=== PATIENT | male | born 1940 | race Caucasian/White ===

== ENCOUNTER → 2017-08-24 | Outpatient (CLI) | payer MEDICARE, MEDICAID ==
--- NOTE | 2017-08-24 12:32 | RADIOLOGY REPORT (SQ) ---
EXAM DESCRIPTION: KNEE RIGHT 4 VIEWS COMPLETED DATE/TIME: 08/24/2017 12:11 pm REASON FOR STUDY: ANKYLOSIS, RIGHT KNEE M24.661 ANKYLOSIS, RIGHT KNEE COMPARISON: None. NUMBER OF VIEWS: Four views. TECHNIQUE: AP, lateral, and both oblique radiographic images acquired of the right knee. LIMITATIONS: None. FINDINGS: MINERALIZATION: Osteopenic BONES: No acute fracture or dislocation. No worrisome bone lesions. JOINT: Trace suprapatellar knee joint effusion. Mild to moderate medial compartment joint space narr owing. Moderate patellofemoral joint space narrowing SOFT TISSUES: Spotty atherosclerotic arterial vascular calcification. No radiopaque foreign body or soft tissue gas OTHER: No other significant finding. IMPRESSION: Trace knee joint effusion Patellofemoral and medial compartment osteoarthritis No acute fracture TECHNICAL DOCUMENTATION: JOB ID: [id number] [employer]- All Rights Reserved
== END ==
LOC: OD 11:46
PROVIDERS: ATTEND Internal Medicine
DX: M24.661 Ankylosis, right knee (principal); M17.11 Unilateral primary osteoarthritis, right knee

== ENCOUNTER 2018-03-24 16:21 | Inpatient (IN) | payer MEDICARE, MEDICAID ==
[2018-03-24] MEDS ORDERED: CEFAZOLIN 1 GM/D5W RTU 1 GM/50 ML RTUPB IV ONE ×2 (16:40→20:52)
[2018-03-24] MEDS ORDERED: DIPH/PERTUSS(ACELL)/TETANUS VAC/PF 0.5 ML SYR (>=10YO) IM ONE ×2 (16:40→20:55)
--- NOTE | 2018-03-24 16:42 | ER Document Report ---
ED Medical Screen (RME) - General Chief Complaint: Snake Bite Stated Complaint: SNAKE BITE/FINGER Time Seen by Provider: 03/24/18 16:39 Mode of Arrival: Ambulatory Information source: Patient, Relative TRAVEL OUTSIDE OF THE [place] IN LAST 30 DAYS: No - HPI Patient complains to provider of: snake bite Onset: Just prior to arrival - pt with snake bite ([place]) to R hand. Tet- OOD - Related Data Allergies/Adverse Reactions: atorvastatin calcium [From Lipitor] Allergy (Verified 03/24/18 16:23) codeine [Codeine] Allergy (Verified 03/24/18 16:23) Past Medical History - Past Medical History Cardiac Medical History: Reports: Hx Hypercholesterolemia, Hx Hypertension Past Surgical History: Reports: Hx Appendectomy, Hx Cholecystectomy, Hx Herniorrhaphy, Hx Tonsillectomy Physical Exam - Vital signs Vitals: Temp Pulse Resp BP Pulse Ox 98.3 F 72 16 104/59 L 96 03/24/18 16:28 03/24/18 16:28 03/24/18 16:28 03/24/18 16:28 03/24/18 16:28 Course - Vital Signs Vital signs: Temp Pulse Resp BP Pulse Ox 98.3 F 72 16 104/59 L 96 03/24/18 16:28 03/24/18 16:28 03/24/18 16:28 03/24/18 16:28 03/24/18 16:28 Doctor's Discharge - Discharge Referrals: JOVANI VITALE MD [Primary Care Provider] - Follow up as needed
[2018-03-24] MEDS ORDERED: ANTIVENIN,CROTALIDAE FAB(OVIN) INJ 1 VIAL IV ONE (17:02)
[2018-03-24 17:53] LABS: ABSOLUTE BASOPHILS # (AUTO) 0.1 10^3/uL (0.0-0.2); ABSOLUTE EOSINOPHILS # (AUTO) 0.2 10^3/uL (0.0-0.6); ABSOLUTE LYMPHOCYTES (AUTO) 1.3 10^3/uL (0.5-4.7); ABSOLUTE MONOCYTES (AUTO) 0.6 10^3/uL (0.1-1.4); ABSOLUTE NEUT (AUTO) 4.3 10^3/uL (1.7-8.2); BASOPHILS % (AUTO) 1.3 % (0-2); EOSINOPHILS % (AUTO) 3.6 % (0-6); HEMATOCRIT 37.6 % (37.9-51.0); HEMOGLOBIN 12.5 g/dL (13.5-17.0); MEAN CORPUSCULAR HGB CONC 33.2 g/dL (32.0-36.0); MEAN CORPUSCULAR VOLUME 87 fl (80-97); MONOCYTES % (AUTO) 8.7 % (3-13); PLATELET COUNT 133 10^3/uL (150-450); RED BLOOD COUNT 4.32 10^6/uL (4.35-5.55); RED CELL DISTRIBUTION WIDTH 15.8 % (11.5-14.0); SEGMENTED NEUTROPHILS % (AUTO) 66.4 % (42-78); TOTAL CELLS COUNTED % (AUTO) 100 %; WHITE BLOOD COUNT 6.4 10^3/uL (4.0-10.5)
[2018-03-24 18:08] LABS: ALANINE AMINOTRANSFERASE 32 U/L (21-72); ALBUMIN 4.1 g/dL (3.5-5.0); ALKALINE PHOSPHATASE 68 U/L (38-126); ANION GAP 12 (5-19); ASPARTATE AMINO TRANSFERASE 35 U/L (17-59); BILIRUBIN,DIRECT 0.3 mg/dL (0.0-0.4); BILIRUBIN,TOTAL 0.6 mg/dL (0.2-1.3); BLOOD UREA NITROGEN 24 mg/dL (7-20); CALCIUM 9.8 mg/dL (8.4-10.2); CARBON DIOXIDE 23 mmol/L (22-30); CHLORIDE 107 mmol/L (98-107); GLUCOSE 85 mg/dL (75-110); POTASSIUM 4.7 mmol/L (3.6-5.0); SODIUM 142.2 mmol/L (137-145); TOTAL PROTEIN 7.1 g/dL (6.3-8.2)
[2018-03-24 18:20] LABS: INTERNATIONAL RATION (INR) 0.96; PROTHROMBIN TIME 13.3 SEC (11.4-15.4)
[2018-03-24 18:21] LABS: PARTIAL THROMBOPLASTIN TIME 30.8 SEC (23.5-35.8)
--- NOTE | 2018-03-24 18:59 | PDOC CONSULTATION ---
Consultation Consult Date: 03/24/18 Consult reason:: snake bite to right hand History of Present Illness Admission Date/PCP: JOVANI VITALE Patient complains of: pains right hand History of Present Illness: CATHIE JEFFREY is a 77 year old male just post AICD placement was bitten on his right ring finger by a copperhead snake this afternoon. Patient c/o pains and swelling right hand. Patient is being given antivenom right now. Past Medical History Cardiac Medical History: Reports: Myocardial Infarction, Hyperlipidema, Hypertension Past Surgical History Past Surgical History: Reports: Appendectomy, Cardiac Catheterization - Stent; Defibrilator, Cholecystectomy, Herniorrhaphy, Tonsillectomy, Other - AICD placement Social History Smoking Status: Former Smoker Family History Family History: Reviewed & Not Pertinent Parental Family History Reviewed: Yes Children Family History Reviewed: No Sibling(s) Family History Reviewed.: No Medication/Allergy Home Medications: Hydrocodone/Acetaminophen [Vicodin 5-300 mg Tablet] 0.5 - 1 tab PO ASDIR PRN # 10 tab 01/04/15 Allergies/Adverse Reactions: atorvastatin calcium [From Lipitor] Allergy (Verified 03/24/18 16:23) codeine [Codeine] Allergy (Verified 03/24/18 16:42) Latex, Natural Rubber Adverse Reaction (Verified 03/24/18 16:43) Review of Systems Constitutional: PRESENT: other - no fever/chills Eyes: PRESENT: other - no visual/hearing changes Cardiovascular: PRESENT: other - no chest pains/cough Gastrointestinal: PRESENT: other - no pains Genitourinary: PRESENT: other - no dysuria Musculoskeletal: PRESENT: joint swelling - right interphalangeal joint 4th finger and surrounding areas of the right hand Neurological: PRESENT: other - no weakness Hematologic/Lymphatic: PRESENT: other - no easy bruising Physical Exam Vital Signs: Temp Pulse Resp BP Pulse Ox 98.3 F 72 16 104/59 L 100 03/24/18 16:28 03/24/18 16:28 03/24/18 18:05 03/24/18 16:28 03/24/18 18:05 Intake & Output 03/23/18 03/24/18 03/25/18 06:59 06:59 06:59 Weight 91.5 kg General appearance: PRESENT: mild distress Head exam: PRESENT: atraumatic Eye exam: PRESENT: conjunctiva pink Mouth exam: PRESENT: moist Neck exam: PRESENT: full ROM Respiratory exam: PRESENT: clear to auscultation kit Cardiovascular exam: PRESENT: RRR Pulses: PRESENT: normal radial pulses Vascular exam: PRESENT: normal capillary refill GI/Abdominal exam: PRESENT: soft Rectal exam: PRESENT: deferred Extremities exam: PRESENT: joint swelling - right 4th finger PIP and MCP joints with dried blood between 3rd and 4th fingers Able to slowly straighten right fingers Right hand is swollen and rest of the fingers right hand Intact sensation Neurological exam: PRESENT: alert, oriented to person, oriented to place, oriented to time, oriented to situation Psychiatric exam: PRESENT: appropriate affect Skin exam: PRESENT: normal color, warm Results Laboratory Results: 03/24/18 17:31 03/24/18 17:31 03/24/18 03/24/18 03/24/18 17:31 17:31 17:39 WBC 6.4 RBC 4.32 L Hgb 12.5 L Hct 37.6 L MCV 87 MCH 29.0 MCHC 33.2 RDW 15.8 H Plt Count 133 L Seg Neutrophils % 66.4 Lymphocytes % 20.0 Monocytes % 8.7 Eosinophils % 3.6 Basophils % 1.3 Absolute Neutrophils 4.3 Absolute Lymphocytes 1.3 Absolute Monocytes 0.6 Absolute Eosinophils 0.2 Absolute Basophils 0.1 Sodium 142.2 Potassium 4.7 Chloride 107 Carbon Dioxide 23 Anion Gap 12 BUN 24 H Creatinine 1.28 H Est GFR ( Amer) > 60 Est GFR (Non-Af Amer) 54 L Glucose 85 Lactic Acid 1.0 Calcium 9.8 Total Bilirubin 0.6 AST 35 ALT 32 Alkaline Phosphatase 68 Total Protein 7.1 Albumin 4.1 Assessment & Plan - Diagnosis (1) snake bite to right hand Is this a current diagnosis for this admission?: Yes - Time Time Spent: 30 to 50 Minutes - Plan Summary Plan Summary: The right hand is first seen but appears to be getting worse according to his nurse. The 4th finger is really swollen and this may lead to a compartment syndrome Ask Ortho to evaluate if not suggest transferring to a tertiary facility where they can monitor the venom reaction and swelling of right hand by a hand surgeon.
--- NOTE | 2018-03-24 19:15 | ER Document Report ---
ED Snake Bite - General Mode of Arrival: Ambulatory TRAVEL OUTSIDE OF THE [place] IN LAST 30 DAYS: No - HPI Onset: This afternoon - APPROX. 1515 HRS. Where: Home, Outdoors Location of injury: RUE - R. RING FINGER Type of snake: COPPERHEAD Animal captured or known: Yes Animal control notified: No Quality of pain: Throbbing Severity: Bitten, Envenomation - MODERATE Context of attack: Entered snake's domain Lost Consciousness: No Remembers: Injury, Coming to hospital Associated Symptoms: denies: Fever/chills/sweaty, Hurts to breathe, Nausea/ vomiting, Sensory/motor loss (arm), Tremors, Seizure, Lightheaded, Headache <MYRON HOLDEN - Last Filed: 03/24/18 19:18> <CHARLES COE - Last Filed: 03/25/18 02:09> - General Chief Complaint: Snake Bite Stated Complaint: SNAKE BITE/FINGER Time Seen by Provider: 03/24/18 16:39 - Related Data Allergies/Adverse Reactions: atorvastatin calcium [From Lipitor] Allergy (Verified 03/24/18 16:23) codeine [Codeine] Allergy (Verified 03/24/18 16:42) Latex, Natural Rubber Adverse Reaction (Verified 03/24/18 16:43) Past Medical History - General Information source: Patient, Relative - Social History Smoking Status: Former Smoker Frequency of alcohol use: Rare Drug Abuse: None Lives with: Spouse/Significant other Family History: Reviewed & Not Pertinent Patient has suicidal ideation: No Patient has homicidal ideation: No - Past Medical History Cardiac Medical History: Reports: Hx Heart Attack, Hx Hypercholesterolemia, Hx Hypertension Pulmonary Medical History: Reports: None EENT Medical History: Reports: None Neurological Medical History: Reports: None Endocrine Medical History: Reports: None Renal/ Medical History: Reports: None. Denies: Hx Peritoneal Dialysis Malignancy Medical History: Reports None GI Medical History: Reports: None Musculoskeletal Medical History: Reports None Psychiatric Medical History: Reports: None Past Surgical History: Reports: Hx Appendectomy, Hx Cardiac Catheterization - Stent; Defibrilator, Hx Cholecystectomy, Hx Herniorrhaphy, Hx Pacemaker, Hx Tonsillectomy, Other - AICD placement <MYRON HOLDEN - Last Filed: 03/24/18 19:18> Review of Systems - Review of Systems Constitutional: No symptoms reported EENT: No symptoms reported Cardiovascular: No symptoms reported Respiratory: No symptoms reported Gastrointestinal: No symptoms reported Genitourinary: No symptoms reported Musculoskeletal: See HPI Skin: See HPI Neurological/Psychological: No symptoms reported <NAVINMYRON - Last Filed: 03/24/18 19:18> Physical Exam - Vital signs Interpretation: Hypotensive. No: Tachycardic, Tachypneic, Febrile - General General appearance: Appears well, Alert In distress: None - HEENT Head: Normocephalic Eyes: Normal Conjunctiva: Normal Ears: Normal Nasal: Normal Mouth/Lips: Normal Mucous membranes: Normal - Respiratory Respiratory status: No respiratory distress Breath sounds: Normal - Cardiovascular Rhythm: Regular Heart sounds: Normal auscultation Murmur: No - Abdominal Inspection: Normal Distension: No distension - Extremities General upper extremity: No: Normal inspection - R. HAND (SEE BELOW) General lower extremity: Normal inspection Hand: Other - Puncture wounds near PIP joint of right ring finger. Moderate edema of fingers #3 4 and 5, extending dorsally to the mid metacarpal area. Slight violaceous discoloration noted. Skin remains loose, no impending compartment syndrome at this time. - Neurological Neuro grossly intact: Yes Cognition: Normal Orientation: AAOx4 - Psychological Associated symptoms: Normal affect, Normal mood - Skin Skin Temperature: Warm Skin Moisture: Dry Skin Color: Normal Skin Turgor: Elastic Skin irregularity: other - SEE "HAND" ABOVE <NAVINMYRON - Last Filed: 03/24/18 19:18> - Vital signs Vitals: Temp Pulse Resp BP Pulse Ox 98.3 F 72 16 104/59 L 96 03/24/18 16:28 03/24/18 16:28 03/24/18 16:28 03/24/18 16:28 03/24/18 16:28 Course - Laboratory Result Diagrams: 03/24/18 17:31 03/24/18 17:31 - Consults DR. ZUNIGA Time consulted: 17:40 Consulted provider: will come to ER DR. MCKEON Time consulted: 18:40 <MYRON HOLDEN - Last Filed: 03/24/18 19:18> - Laboratory Result Diagrams: 03/24/18 17:31 03/24/18 17:31 <CHARLES COE - Last Filed: 03/25/18 02:09> - Vital Signs Vital signs: Temp Pulse Resp BP Pulse Ox 97.4 F 72 15 109/63 98 03/24/18 22:17 03/24/18 16:28 03/25/18 00:00 03/24/18 23:04 03/25/18 00:00 - Laboratory Laboratory results interpreted by me: 03/24/18 03/24/18 03/24/18 17:31 17:31 17:31 RBC 4.32 L Hgb 12.5 L Hct 37.6 L RDW 15.8 H Plt Count 133 L D-Dimer 1.31 H BUN 24 H Creatinine 1.28 H Est GFR (Non-Af Amer) 54 L Ur Leukocyte Esterase 03/24/18 18:54 RBC Hgb Hct RDW Plt Count D-Dimer BUN Creatinine Est GFR (Non-Af Amer) Ur Leukocyte Esterase TRACE H - Consults DR. MCKEON Reason for consultation: 03/24/18 19:19 AGREES TO SEE PATIENT IN CONSULTATION. (MYRON HOLDEN) Discharge <MYRON HOLDEN - Last Filed: 03/24/18 19:18> - Discharge Admitting Provider: Surgicalist Unit Admitted: Surgical Floor <CHARLES COE - Last Filed: 03/25/18 02:09> - Discharge Clinical Impression: snake bite to right hand Condition: Fair Disposition: ADMITTED INPATIENT Referrals: JOVANI VITALE MD [Primary Care Provider] - Follow up as needed
[2018-03-24 19:42] LABS: APPEARANCE,URINE CLEAR; BILIRUBIN,URINE NEGATIVE (NEGATIVE); COLOR,URINE YELLOW; GLUCOSE, URINE NEGATIVE (NEGATIVE); KETONES,URINE NEGATIVE (NEGATIVE); LEUKOCYTE ESTERASE,URINE TRACE (NEGATIVE); NITRITE,URINE NEGATIVE (NEGATIVE); PROTEIN,URINE NEGATIVE (NEGATIVE); URINE SPECIFIC GRAVITY 1.015; UROBILINOGEN,URINE NEGATIVE mg/dL (<2.0)
[2018-03-24 19:57] LABS: D-DIMER 1.31 ug/mL (0.00-0.50)
[2018-03-24] MEDS ORDERED: ATORVASTATIN CALCIUM 80 MG TABLET PO ONE (22:05)
[2018-03-24] MEDS ORDERED: ASPIRIN 81 MG TABLET, CHEWABLE PO ONE (22:05)
[2018-03-24] MEDS: NORMAL SALINE 1000 ML 1,000 ML IV PRN (22:13)
[2018-03-24] MEDS ORDERED: TICAGRELOR 90 MG TABLET PO SCH (22:15)
[2018-03-25] MEDS ORDERED: CEFTRIAXONE INJ 500 MG VIAL ONE (05:49)
[2018-03-25] MEDS ORDERED: CEFTRIAXONE 1 GM/D5W RTU 1 GM/50 ML RTUPB IV SCH (06:00)
--- NOTE | 2018-03-25 07:11 | PDOC CONSULTATION ---
History of Present Illness Admission Date/PCP: 03/25/18 02:12 JOVANI VITALE Patient complains of: Snakebite right hand History of Present Illness: CATHIE JEFFREY is a 77 year old male who was working in the garden when he felt a sharp stabbing pain along his right ring finger. Initially thought it was a wasp bite but after exploring he found a copperhead snake and small finger wounds along his middle finger. He was promptly brought to the emergency room where it was concluded patient sustained a venomous snake bite. Patient was started on antivenom which significant improved patient's pain, swelling. Patient denies chest pain or shortness of breath. Past Medical History Cardiac Medical History: Reports: Myocardial Infarction, Hyperlipidema, Hypertension Pulmonary Medical History: Reports: None EENT Medical History: Reports: None Neurological Medical History: Reports: None Endocrine Medical History: Reports: None Renal/ Medical History: Reports: None Malignancy Medical History: Reports: None GI Medical History: Reports: None Musculoskeltal Medical History: Reports: None Psychiatric Medical History: Reports: None Denies: Depression Past Surgical History Past Surgical History: Reports: Appendectomy, Cardiac Catheterization - Stent; Defibrilator, Cholecystectomy, Herniorrhaphy, Pacemaker, Tonsillectomy, Other - AICD placement Social History Lives with: Spouse/Significant other Smoking Status: Former Smoker Last Time Smoked: quit over 40 yrs ago Frequency of Alcohol Use: None Hx Recreational Drug Use: No Drugs: None Hx Prescription Drug Abuse: No - Advance Directive Resuscitation Status: Full Code Family History Family History: Reviewed & Not Pertinent Parental Family History Reviewed: No Children Family History Reviewed: No Sibling(s) Family History Reviewed.: No Medication/Allergy Home Medications: Hydrocodone/Acetaminophen [Vicodin 5-300 mg Tablet] 0.5 - 1 tab PO ASDIR PRN # 10 tab 01/04/15 Allergies/Adverse Reactions: codeine [Codeine] Allergy (Verified 03/24/18 16:42) Latex, Natural Rubber Adverse Reaction (Verified 03/24/18 16:43) Review of Systems Constitutional: ABSENT: chills, fever(s), headache(s), weight gain, weight loss Eyes: ABSENT: visual disturbances Ears: ABSENT: hearing changes Cardiovascular: ABSENT: chest pain, dyspnea on exertion, edema, orthropnea, palpitations Respiratory: ABSENT: cough, hemoptysis Gastrointestinal: ABSENT: abdominal pain, constipation, diarrhea, hematemesis, hematochezia, nausea, vomiting Genitourinary: ABSENT: dysuria, hematuria Integumentary: ABSENT: rash, wounds Neurological: ABSENT: abnormal gait, abnormal speech, confusion, dizziness, focal weakness, syncope Psychiatric: ABSENT: anxiety, depression, homidical ideation, suicidal ideation Endocrine: ABSENT: cold intolerance, heat intolerance, menstrual abnormalities, polydipsia, polyuria Hematologic/Lymphatic: ABSENT: easy bleeding, easy bruising, lymphadenopathy Physical Exam Vital Signs: Temp Pulse Resp BP Pulse Ox 97.6 F 70 18 113/67 99 03/25/18 04:33 03/25/18 04:33 03/25/18 04:33 03/25/18 04:33 03/25/18 04:33 Intake & Output 03/24/18 03/25/18 03/26/18 06:59 06:59 06:59 Intake Total 920 Output Total 200 Balance 720 Weight 91.5 kg General appearance: PRESENT: no acute distress, well-developed, well-nourished Head exam: PRESENT: atraumatic, normocephalic Eye exam: PRESENT: conjunctiva pink, EOMI, PERRLA. ABSENT: scleral icterus Ear exam: PRESENT: normal external ear exam Mouth exam: PRESENT: moist, tongue midline Neck exam: PRESENT: full ROM. ABSENT: carotid bruit, JVD, lymphadenopathy, thyromegaly Respiratory exam: PRESENT: unlabored Cardiovascular exam: PRESENT: RRR. ABSENT: diastolic murmur, rubs, systolic murmur Pulses: PRESENT: normal dorsalis pedis pul, +2 pedal pulses bilateral Vascular exam: PRESENT: normal capillary refill GI/Abdominal exam: PRESENT: normal bowel sounds, soft. ABSENT: distended, guarding, mass, organolmegaly, rebound, tenderness Rectal exam: PRESENT: deferred Musculoskeletal exam: PRESENT: other - Right hand: Small puncture wound along the radial aspect of the ring finger at the level of the middle phalanx with small puncture wound on the dorsal aspect of the index finger at the level of the middle phalanx. Swelling and ecchymosis on the dorsum of the hand demarcation of swelling has notable improvement between 1500 & 1800. Patient has intact sensation light touch. Cap refill less than 2 seconds. There is swelling of the ring and middle finger however soft and compressible no sign of compartment syndrome. Patient is intact IP/MP joint flexion. Radial pulse 2+. Neurological exam: PRESENT: alert, awake, oriented to person, oriented to place , oriented to time, oriented to situation, CN II-XII grossly intact. ABSENT: motor sensory deficit Psychiatric exam: PRESENT: appropriate affect, normal mood. ABSENT: homicidal ideation, suicidal ideation Skin exam: PRESENT: dry, intact, warm. ABSENT: cyanosis, rash Assessment & Plan - Diagnosis (1) snake bite to right hand Is this a current diagnosis for this admission?: Yes Plan: Patient was seen in the emergency room at 2030 where notable improvement was noted as per patient, family and demarcation which was marked after administration of antivenom. Currently there is no sign or symptoms of infection or compartment syndrome. Would recommend 36-48 hours of monitoring if patient shows no significant worsening would be stable for discharge to home. We will continue to monitor patient clinically.
[2018-03-25 07:51] LABS: ABSOLUTE EOSINOPHILS # (AUTO) 0.3 10^3/uL (0.0-0.6); LYMPHOCYTES % (AUTO) 20.5 % (13-45); RED CELL DISTRIBUTION WIDTH 15.7 % (11.5-14.0); TOTAL CELLS COUNTED % (AUTO) 100 %
[2018-03-25 07:56] LABS: ABSOLUTE LYMPHOCYTES (AUTO) 1.2 10^3/uL (0.5-4.7); ABSOLUTE MONOCYTES (AUTO) 0.5 10^3/uL (0.1-1.4); ABSOLUTE NEUT (AUTO) 3.8 10^3/uL (1.7-8.2); BASOPHILS % (AUTO) 0.4 % (0-2); EOSINOPHILS % (AUTO) 4.5 % (0-6); HEMATOCRIT 34.3 % (37.9-51.0); HEMOGLOBIN 11.7 g/dL (13.5-17.0); MEAN CORPUSCULAR HEMOGLOBIN 29.5 pg (27.0-33.4); MEAN CORPUSCULAR HGB CONC 34.1 g/dL (32.0-36.0); MEAN CORPUSCULAR VOLUME 87 fl (80-97); PLATELET COUNT 112 10^3/uL (150-450); RED BLOOD COUNT 3.96 10^6/uL (4.35-5.55); SEGMENTED NEUTROPHILS % (AUTO) 66.6 % (42-78); WHITE BLOOD COUNT 5.7 10^3/uL (4.0-10.5)
[2018-03-25 07:58] LABS: INTERNATIONAL RATION (INR) 0.99; PROTHROMBIN TIME 13.6 SEC (11.4-15.4)
[2018-03-25] MEDS: TICAGRELOR 90 MG TABLET PO SCH ×2 (09:46→17:30)
--- NOTE | 2018-03-25 10:59 | PDOC PROGRESS REPORT ---
Subjective Progress Note for:: 03/25/18 Subjective:: Patient seen and evaluated on rounds this morning. No issues overnight. States pain is significantly improved. Denies fever chills or sweats. Reason For Visit: SNAKE BITE RIGHT HAND Physical Exam Vital Signs: Temp Pulse Resp BP Pulse Ox 97.6 F 75 16 104/62 97 03/25/18 07:10 03/25/18 07:10 03/25/18 07:10 03/25/18 07:10 03/25/18 07:10 Intake & Output 03/24/18 03/25/18 03/26/18 06:59 06:59 06:59 Intake Total 920 Output Total 200 Balance 720 Weight 91.5 kg Musculoskeletal exam: PRESENT: other - Right hand: Areas of demarcation of notably improved. Does have some residual swelling along the dorsum of the hand and the digit. Compartments soft and compressible no sign of compartment syndrome. No pain with passive stretch. No erythema or drainage. Intact sensation to light touch. Patient able to make full composite fist. Has full extension of the MP and IP joints. Results Laboratory Results: 03/25/18 07:22 03/25/18 07:22 WBC 5.7 RBC 3.96 L Hgb 11.7 L Hct 34.3 L MCV 87 MCH 29.5 MCHC 34.1 RDW 15.7 H Plt Count 112 L Seg Neutrophils % 66.6 Lymphocytes % 20.5 Monocytes % 8.0 Eosinophils % 4.5 Basophils % 0.4 Absolute Neutrophils 3.8 Absolute Lymphocytes 1.2 Absolute Monocytes 0.5 Absolute Eosinophils 0.3 Absolute Basophils 0.0 Assessment & Plan - Diagnosis (1) snake bite to right hand Is this a current diagnosis for this admission?: Yes Plan: Patient doing well. Currently no sign or symptoms of compartment syndrome. At this point we will continue clinical monitoring anticipate discharge within 24 hours.
--- NOTE | 2018-03-25 15:21 | PDOC PROGRESS REPORT ---
Subjective Progress Note for:: 03/25/18 Subjective:: Comfortable. Less pains right hand Reason For Visit: SNAKE BITE RIGHT HAND Physical Exam Vital Signs: Temp Pulse Resp BP Pulse Ox 97.6 F 64 16 102/62 98 03/25/18 11:05 03/25/18 11:05 03/25/18 11:05 03/25/18 11:05 03/25/18 11:05 Intake & Output 03/24/18 03/25/18 03/26/18 06:59 06:59 06:59 Intake Total 920 Output Total 200 Balance 720 Weight 91.5 kg Exam: Swelling right hand has improved.Able to flex and straighten right hand Results Laboratory Results: 03/25/18 07:22 03/25/18 07:22 WBC 5.7 RBC 3.96 L Hgb 11.7 L Hct 34.3 L MCV 87 MCH 29.5 MCHC 34.1 RDW 15.7 H Plt Count 112 L Seg Neutrophils % 66.6 Lymphocytes % 20.5 Monocytes % 8.0 Eosinophils % 4.5 Basophils % 0.4 Absolute Neutrophils 3.8 Absolute Lymphocytes 1.2 Absolute Monocytes 0.5 Absolute Eosinophils 0.3 Absolute Basophils 0.0 Assessment & Plan - Diagnosis (1) snake bite to right hand Is this a current diagnosis for this admission?: Yes - Time Time Spent with patient: 15-24 minutes - Inpatient Certification Medical Necessity: Need Close Monitoring Due to Risk of Patient Decompensation, Need For Continuous Telemetry Monitoring, Need for IV Antibiotics - Plan Summary Plan Summary: Continue to observe next 24 hrs. Recheck PT/INR and CBC in am.
[2018-03-25] MEDS: NORMAL SALINE 1000 ML 1,000 ML IV PRN (17:31)
--- NOTE | 2018-03-25 18:41 | HISTORY AND PHYSICAL E ---
History and Physical NAME: CATHIE JEFFREY : 1940 AGE: 77Y ADMITTED: 03/25/2018 ROOM: 528 CHIEF COMPLAINT: Pains on the right hand due to snake bite. HISTORY OF PRESENT ILLNESS: The patient is a 77-year-old male status post AICD placement who was bitten on his right ring finger by a copperhead snake a few hours prior to going to the ED. The patient complaining of pains along the right hand. The patient has been given antivenom right now in the ED. PAST MEDICAL HISTORY: He reports myocardial infarction, hyperlipidemia, and hypertension. PAST SURGICAL HISTORY: He reports appendectomy, cardiac catheterization with stent, defibrillator, cholecystectomy, herniorrhaphy, tonsillectomy, and AICD placement. SOCIAL HISTORY: Smoking status; former smoker. FAMILY HISTORY: Reviewed and not pertinent. PARENTAL FAMILY HISTORY: Reviewed; yes. CHILDREN AND FAMILY HISTORY: Reviewed; no siblings. HOME MEDICATIONS: Hydrocodone/acetaminophen (Vicodin)5-300 mg tablet (0.5-1 tab p.o.) as needed for pain. ALLERGIES/ADVERSE REACTIONS: 1. ATORVASTATIN, LIPITOR. 2. CODEINE. 3. LATEX, NATURAL RUBBER ADVERSE REACTION. REVIEW OF SYSTEMS: CONSTITUTIONAL: Denies any fever or chills. EYES: No visual or hearing problems. CARDIOVASCULAR: No chest pains or cough. GASTROINTESTINAL: No pains. GENITOURINARY: No dysuria. MUSCULOSKELETAL: Joint swelling right fourth finger interphalangeal joint and surrounding areas of the right hand. NEUROLOGIC: No weakness. HEMATOLOGIC/LYMPHATIC: No easy bruising. PHYSICAL EXAMINATION: GENERAL: A well-developed, well-nourished 77-year-old male, alert and oriented, complaining of pains along the right hand, mild distress. VITAL SIGNS: Temperature is 98.3, pulse 72 per minute, respirations 16 per minute, blood pressure 104/59, and pulse ox is 100% on room air. HEAD: Atraumatic. EYE: Conjunctivae pink. MOUTH: Moist. NECK: Full range of motion. RESPIRATORY: Clear to auscultation bilateral. CARDIOVASCULAR: Regular rate and rhythm. PULSES: Normal radial pulse. VASCULAR: Normal capillary refill. GASTROINTESTINAL/ABDOMEN: Soft, nontender. RECTAL: Deferred. EXTREMITIES: There is joint swelling along the right fourth finger, DIP and MCP joints with dried blood between the third and fourth fingers. Able to slowly straighten right finger. Right hand is swollen and the rest of the fingers of the right hand with intact sensation. NEUROLOGIC: Alert, oriented to person, oriented to place, oriented to time, oriented to situation. PSYCHIATRIC: Appropriate affect. SKIN: Normal color and warmth. LABORATORY DATA: His white count is 6.4, hemoglobin 12.5, platelet count of 133. Coagulation; PT is 13.3 seconds, INR is 0.96, a PTT of 30.8. Fibrinogen level of 464 and fibrin degradation products less than 10. D-dimer 1.31. IMPRESSION: 1. Snake bite to the right fourth finger. 2. Hypertension. 3. Status post placement of AICD. PLAN: 1. Consultation orthopedic hand surgeon. 2. Finish antivenom therapy. 3. Start IV antibiotics. 4. Elevate right hand. 5. Monitor coagulation and CBC. DICTATING PHYSICIAN: DIANA ZUNIGA M.D. [id number] PHY#: [id number] ID: [id number] JOB#: [id number] ACCT: [id number] cc: >
[2018-03-25] MEDS ORDERED: ALLOPURINOL 100 MG TABLET PO SCH (22:00)
[2018-03-25] MEDS ORDERED: ATORVASTATIN CALCIUM 80 MG TABLET PO SCH (22:00)
[2018-03-25] MEDS: GABAPENTIN 300 MG CAPSULE PO SCH (22:23)
[2018-03-26] MEDS: GABAPENTIN 300 MG CAPSULE PO SCH (05:06)
[2018-03-26] MEDS ORDERED: CEFTRIAXONE SODIUM 1,000 MG in NORMAL SALINE 50 ML IV SCH (06:00)
[2018-03-26] MEDS ORDERED: LEVOTHYROXINE SODIUM 0.088 MG TABLET PO SCH (06:00)
[2018-03-26] MEDS ORDERED: METOPROLOL SUCCINATE 25 MG TAB.SR.24H PO SCH (10:00)
[2018-03-26] MEDS ORDERED: FINASTERIDE 5 MG TABLET PO SCH (10:00)
[2018-03-26] MEDS ORDERED: LOSARTAN POTASSIUM 25 MG TABLET PO SCH (10:00)
[2018-03-26] MEDS ORDERED: LORATADINE 10 MG TABLET PO SCH (10:00)
[2018-03-26] MEDS ORDERED: ASPIRIN 81 MG TABLET, ENT COATED PO SCH (10:00)
[2018-03-26] MEDS ORDERED: OMEGA-3 ACID ETHYL ESTERS 1 GM CAPSULE PO SCH (10:00)
[2018-03-26] MEDS ORDERED: TICAGRELOR 90 MG TABLET PO SCH (10:00)
[2018-03-26] MEDS ORDERED: CALCIUM CARBONATE 500 MG TABLET PO SCH (10:00)
[2018-03-26] MEDS ORDERED: POTASSIUM CHLORIDE 20 MEQ/15 ML UDCUP PO SCH (10:00)
[2018-03-26] MEDS ORDERED: MAGNESIUM OXIDE 400 MG TABLET PO SCH (10:00)
[2018-03-26] MEDS ORDERED: (PENDING PHARMACY ID) (Omega-3/Dha/Epa/Fish Oil [Fish Oil 1,000 Mg Softgel] 1,000 MG) PO SCH (10:00)
[2018-03-26] MEDS ORDERED: FUROSEMIDE 40 MG TABLET PO SCH (10:00)
--- NOTE | 2018-03-26 11:23 | PDOC PROGRESS REPORT ---
Subjective Subjective:: Patient seen and evaluated on rounds this morning. No issues overnight. States pain is significantly improved. Denies fever chills or sweats. Reason For Visit: SNAKE BITE RIGHT HAND Physical Exam Vital Signs: Temp Pulse Resp BP Pulse Ox 98.1 F 71 20 109/59 L 99 03/26/18 07:45 03/26/18 07:45 03/26/18 07:45 03/26/18 07:45 03/26/18 07:45 Intake & Output 03/25/18 03/26/18 03/27/18 06:59 06:59 06:59 Intake Total 920 1503 Output Total 200 1300 Balance 720 203 Weight 91.5 kg 91.5 kg General appearance: PRESENT: no acute distress, well-developed, well-nourished Respiratory exam: PRESENT: unlabored Musculoskeletal exam: PRESENT: other - Right hand: Swelling continues to improve. Mild residual swelling on the ring and middle finger. No erythema or drainage. No pain with passive stretch. Patient has full range of motion. No sign or symptoms of compartment syndrome Neurological exam: PRESENT: alert, awake, oriented to person, oriented to place , oriented to time, oriented to situation, CN II-XII grossly intact. ABSENT: motor sensory deficit Results Laboratory Results: 03/25/18 07:22 Assessment & Plan - Diagnosis (1) snake bite to right hand Is this a current diagnosis for this admission?: Yes Plan: Patient doing well. Currently no sign or symptoms of compartment syndrome. At this point we will continue clinical monitoring anticipate discharge today
[2018-03-26 12:17] VITALS: BP 113/67
[2018-03-26] MEDS ORDERED: TAMSULOSIN HCL 0.4 MG CAP.SR.24H PO SCH (18:00)
--- NOTE | 2018-03-27 14:05 | DISCHARGE SUMMARY E ---
Discharge Summary NAME: CATHIE JEFFREY : 1940 AGE: 77Y ADMITTED: 03/25/2018 DISCHARGED: 03/26/2018 FINAL DIAGNOSIS: Snake bite to the right hand with cellulitis. HOSPITAL COURSE: The patient is a 77-year-old male who was bitten by a copperhead snake on the right fourth finger just a few hours prior to going to the Emergency Room. He was given about 4 to 5 doses of antivenom. His hand swelled, especially the right fourth finger. He was then admitted to the surgical service. Patient was seen by Orthopaedics, care of Dr. Bell, who noted there is no significant impairment of any function of the right hand. Patient's coagulation was normal the next day and the swelling of the right hand almost completely subsided on the day of discharge. Patient was then discharged improved on 03/26/2018 to be followed up by his primary physician where he has original appointment in about a week. DICTATING PHYSICIAN: DIANA ZUNIGA M.D. [id number] PHY#: [id number] ID: [id number] JOB#: [id number] ACCT: [id number] cc:Mathew CUEVAS M.D. >
== END 2018-03-26 12:14 | disposition home or self-care (01) | DRG 918 ==
LOC: ER 16:21 → EH 03-25 02:12 → 5 03-25 03:45
PROVIDERS: ADMIT Surgery; ATTEND Surgery
PROC: 3E0234Z Introduction of Serum, Toxoid and Vaccine into Muscle, Percutaneous Approach (ICD-10-PCS; principal; 2018-03-25)
DX: T63.061A Toxic effect of venom of other North and South American snake, accidental (unintentional), initial encounter (principal); E78.5 Hyperlipidemia, unspecified; I10 Essential (primary) hypertension; Y92.096 Garden or yard of other non-institutional residence as the place of occurrence of the external cause; I25.2 Old myocardial infarction; Z90.49 Acquired absence of other specified parts of digestive tract; Z95.810 Presence of automatic (implantable) cardiac defibrillator; Z88.3 Allergy status to other anti-infective agents; Z91.040 Latex allergy status; Z79.899 Other long term (current) drug therapy
CPT/HCPCS: 36415; 80053; 81001; 82550; 83605; 83874; 85025; 85362; 85379; 85384; 85610; 85730; 90715; J0690; J0696; J0840; J3490; J7030